=== PATIENT | female | born 1985 | race Two or more races ===

== ENCOUNTER → 2016-11-07 | Outpatient (CLI) | payer BC | LOC: FIMAGING 11:43 | PROVIDERS: ATTEND Obstetrics & Gynecology | DX: Z71.9 Counseling, unspecified (principal) ==

== ENCOUNTER → 2016-12-06 | Outpatient (CLI) | payer BC | LOC: FIMAGING 14:32 | PROVIDERS: ATTEND Midwife | DX: N92.6 Irregular menstruation, unspecified (principal); N83.01 Follicular cyst of right ovary ==

== ENCOUNTER → 2017-05-01 | Outpatient (CLI) | payer BC | LOC: FIMAGING 09:14 | PROVIDERS: ATTEND Obstetrics & Gynecology | DX: O09.291 Supervision of pregnancy with other poor reproductive or obstetric history, first trimester (principal); O99.111 Other diseases of the blood and blood-forming organs and certain disorders involving the immune mechanism complicating pregnancy, first trimester; Z3A.11 11 weeks gestation of pregnancy ==

== ENCOUNTER → 2017-06-02 | Outpatient (CLI) | payer BC | LOC: FIMAGING 08:38 | PROVIDERS: ATTEND Obstetrics & Gynecology | DX: O09.292 Supervision of pregnancy with other poor reproductive or obstetric history, second trimester (principal); Z3A.16 16 weeks gestation of pregnancy ==

== ENCOUNTER → 2017-06-30 | Outpatient (CLI) | payer BC | LOC: FIMAGING 08:07 | PROVIDERS: ATTEND Obstetrics & Gynecology | DX: Z36.89 Encounter for other specified antenatal screening (principal); Z3A.20 20 weeks gestation of pregnancy; O09.292 Supervision of pregnancy with other poor reproductive or obstetric history, second trimester ==

== ENCOUNTER → 2017-08-12 | Outpatient (CLI) | payer BC | LOC: FIMAGING 08:25 | PROVIDERS: ATTEND Obstetrics & Gynecology | DX: O09.292 Supervision of pregnancy with other poor reproductive or obstetric history, second trimester (principal); O09.212 Supervision of pregnancy with history of pre-term labor, second trimester; Z3A.26 26 weeks gestation of pregnancy ==

== ENCOUNTER → 2017-09-15 | Outpatient (CLI) | payer BC | LOC: FIMAGING 08:44 | PROVIDERS: ATTEND Obstetrics & Gynecology | DX: O09.293 Supervision of pregnancy with other poor reproductive or obstetric history, third trimester (principal); O99.113 Other diseases of the blood and blood-forming organs and certain disorders involving the immune mechanism complicating pregnancy, third trimester; D68.51 Activated protein C resistance; Z3A.31 31 weeks gestation of pregnancy ==

== ENCOUNTER → 2017-10-14 | Outpatient (CLI) | payer BC | LOC: FIMAGING 08:52 | PROVIDERS: ATTEND Obstetrics & Gynecology | DX: O09.893 Supervision of other high risk pregnancies, third trimester (principal); D68.51 Activated protein C resistance; Z3A.35 35 weeks gestation of pregnancy ==

== ENCOUNTER 2017-11-13 00:56 | Inpatient (IN) | payer BC ==
[2017-11-13] MEDS ORDERED: MISOPROSTOL 200 MCG TAB PO PRN (01:58)
[2017-11-13] MEDS ORDERED: OLIVE OIL 118 ML BTL MISC PRN (01:58)
[2017-11-13] MEDS ORDERED: LIDOCAINE 1% 300 MG/30 ML SDV SC PRN (01:58)
[2017-11-13] MEDS ORDERED: EPSOM SALT 454 GM TP PRN (01:58)
[2017-11-13] MEDS ORDERED: AMMONIA AROMATIC 1 EACH AMP IH PRN (01:58)
[2017-11-13] MEDS ORDERED: OXYTOCIN/NORMAL SALINE 1,000 ML IV PRN (01:58)
[2017-11-13] MEDS ORDERED: TERBUTALINE SULFATE 1 MG/ML VIAL IV PRN (01:58)
[2017-11-13] MEDS ORDERED: LR 1,000 ML IV PRN (01:58)
[2017-11-13 02:29] LABS: PLATELET COUNT 192 10^3/uL (150-400)
[2017-11-13] MEDS ORDERED: NARCOTIC DRIP BAG-TOTAL ALL TYPES EP PRN (03:42)
[2017-11-13] MEDS ORDERED: fentaNYL 2MCG/ML/BUP 0.1% RTU 100 ML EP SCH ×2 (03:42→05:30)
[2017-11-13] MEDS ORDERED: NALOXONE HCL 0.4 MG/ML INJ IVP PRN (03:42)
[2017-11-13] MEDS ORDERED: fentaNYL 200 MCG, BUPIVACAINE 0.5% 20 ML in NS 100 ML EP SCH (04:00)
[2017-11-13] MEDS ORDERED: BUPIVACAINE/EPI 0.5% 30 ML SDV ONE (04:09)
[2017-11-13] MEDS ORDERED: fentaNYL 100 MCG/2 ML INJ ONE ×2 (04:09→10:23)
--- NOTE | 2017-11-13 05:28 | PREANESOB ---
Obstetric Pre-Anesthesia Info - General Info : 3 Para: 0 DELMI: 11/14/17 Gestational Age: 39 week(s) and 6 day(s) - Labor Status Rupture of Membranes Date: 11/12/17 Rupture of Membranes Time: 23:53 Anesthesia Allergies/Adverse Reactions: Allergy/AdvReac Type Severity Reaction Status Date / Time No Known Allergies Allergy Unverified 09/03/15 00:28 Home Medications: Medication Instructions Recorded NK [No Known Home Meds] 09/03/15 Visit Medications: Generic Name Dose Route Start Last Admin Trade Name Freq PRN Reason Stop Dose Admin Ammonia (Aromatic Spirit) 1 each 11/13/17 01:58 Ammonia Aromatic IH 11/23/17 01:57 ONCE PRN Fainting Lactated Ringer's 1,000 mls @ 0 mls/hr 11/13/17 01:58 Lr IV 11/14/17 01:57 PRN PRN SEE PROTOCOL CONDITIONS Protocol Per Protocol Oxytocin/Sodium Chloride 1,000 mls @ 0 mls/hr 11/13/17 01:58 Pitocin 20 Units/Ns (Premix) IV PRN PRN Post- bleeding As Directed Fentanyl 200 mcg/ Bupivacaine 100 mls @ 0 mls/hr 11/13/17 04:00 HCl 20 ml/ Sodium Chloride EP 11/23/17 03:59 CONT OSMAR Protocol As Directed Ibuprofen 600 mg 11/13/17 01:58 Motrin PO 05/12/18 01:57 Q6HRS PRN post , inflammation Lidocaine HCl 300 mg 11/13/17 01:58 Lidocaine Hcl 1% SC 05/12/18 01:57 ONCE PRN episiotomy Magnesium Sulfate 454 gm 11/13/17 01:58 Epsom Salt TP 05/12/18 01:57 Q1H PRN perineal discomfort Miscellaneous Information 1 ea 11/13/17 09:00 Message To Rn MISC 05/12/18 08:59 DAILY OSMAR Miscellaneous Information 1 ea 11/13/17 09:00 Message To Rn MISC 05/12/18 08:59 DAILY OSMAR Miscellaneous Medication 1 ea 11/13/17 03:42 Narcotic Drip-Total All Types EP 05/12/18 03:41 PRN PRN Omnicell Removal Misoprostol 800 - 1,000 mcg 11/13/17 01:58 Cytotec PO 05/12/18 01:57 ONCE PRN Vaginal Atony/Bleeding Naloxone HCl 0.4 mg 11/13/17 03:42 Narcan IVP 05/12/18 03:41 PRN PRN Sedation [place] Oil 118 ml 11/13/17 01:58 Sweet Oil MISC 05/12/18 01:57 ONCE PRN perineal massage Terbutaline Sulfate 0.25 mg 11/13/17 01:58 Brethine IV 05/12/18 01:57 ONCE PRN Tachysystole Discontinued Medications Generic Name Dose Route Start Last Admin Trade Name Freq PRN Reason Stop Dose Admin Bupivacaine HCl/Epinephrine Bitart Confirm 11/13/17 04:09 Bupivacaine/Epi Administered 11/13/17 04:10 Dose 30 ml .ROUTE .STK-MED ONE Fentanyl Confirm 11/13/17 04:09 Sublimaze Administered 11/13/17 04:10 Dose 100 mcg .ROUTE .STK-MED ONE - Anesthesia History Response to Local Anesthetics: Normal Anesthesia & Operative History: No Prior Problems Family Anesthesia History: Negative (hx scoliosis) - Vital Signs Height/Weight (Nursing): Height 160 cm Weight 75 kg - Focused Exam Neck exam: FROM Mallampati Score: Class 2 Mouth exam: normal dental/mouth exam Pulmonary: no respiratory distress Cardiovascular: regular rate and rhythym Labs: 11/13/17 02:00 Patient ABO/Rh O POSITIVE 11/13/17 02:00 - Plan Consent Signed and on Chart: Yes Patient/Guardian Understands and Agrees to Plan: Yes Urgent/Emergent Case: Ju alarcon completed preop but documented later for safe timely pt care
[2017-11-13] MEDS ORDERED: ONDANSETRON 4 MG/2 ML VIAL IVP PRN (05:29)
--- NOTE | 2017-11-13 06:32 | PDGENHP ---
History and Physical - Chief Complaint regular contractions and gush of fluid - History of Present Illness 32 yo at 39w6d by 6 wk US, presents with regular contractions since gush of clear fluid at 2353. Had irregular contractions for about 20 hours prior to that. Good FM, a small amount of bloody show. Uncomplicated course, had care with the [facility] , until transferring care to [facility] around 36 weeks. She had a consult with [facility] due to hx of IUFD at 19 weeks when she was in the [place] Aug 2016. Per MFM: 12 week US with normal NT, NIPT 46XX. Factor V Leiden Heterozygote - no hx of thrombosis. No anticoagulation recommended unless has other risk factors for thrombosis including C/S, preeclampsia, or infection. She has been on baby ASA daily until 36 weeks. 16 week and 20 week ultrasounds: normal anatomy and growth 26 week ultrasound:normal anatomy and growth. 31 week ultrasound: EFW at 55%ile, 1864gm Past Ob hx: first trimester SAB 01/2017 19 wk IUFD - fetus was 15 week size, delivered spontaneously in the [place] Aug 2016 labs: O pos Ab scr neg 12.9/38.1 plt 237 HepBsAg neg HIV neg RPR NR Rub NON immune Varicella immune GC neg pap/ HPV neg/neg AFP neg Normal 3 hr GTT, after 1 hr GTT of 153 History Information - Allergies/Home Medication List Allergies/Adverse Reactions: No Known Allergies Allergy (Unverified 09/03/15 00:28) Home Medications: NK [No Known Home Meds] 09/03/15 [Last Taken Unknown] I have personally reviewed and updated: family history, medical history, social history, surgical history Past Medical History: Factor V Leiden heteroxygote - has been on baby ASA during . Scoliosis - Surgical History Reports: no pertinent surgical hx Additional surgical history: has not had any surgery - Social History Smoking Status: Never smoked Alcohol Use: None Drug Use: None Additional social history: , = [place]. Works as tax assessor for [employer] Review of Systems Review of Systems: ROS: 10pt was reviewed & negative except for what was stated in HPI & below Physical Exam Physical Exam: gen - pleasant female, NAD after epidural placed CV - RRR chest - CTAB abd - gravid, soft, NT when not siva ext - calves NT, trace edema SVE per RN on arrival = /high after epidural = /0 Constitutional: no apparent distress Eyes: PERRL Ears, Nose, Mouth, Throat: moist mucous membranes Cardiovascular: regular rate and rhythym Respiratory: no respiratory distress, no rales or rhonchi Skin: warm, normal color Psychiatric: interacting appropriately Lab Data & Imaging Review 11/13/17 02:00 WBC 11.01 10^3/uL (3.80-9.50) H 11/13/17 02:00 RBC 4.16 10^6/uL (4.18-5.33) L 11/13/17 02:00 Hgb 13.5 g/dL (12.6-16.3) 11/13/17 02:00 Hct 40.1 % (38.0-47.0) 11/13/17 02:00 MCV 96.4 fL (81.5-99.8) 11/13/17 02:00 MCH 32.5 pg (27.9-34.1) 11/13/17 02:00 MCHC 33.7 g/dL (32.4-36.7) 11/13/17 02:00 RDW 12.8 % (11.5-15.2) 11/13/17 02:00 Plt Count 192 10^3/uL (150-400) 11/13/17 02:00 MPV 10.8 fL (8.7-11.7) 11/13/17 02:00 Neut % (Auto) 77.3 % (39.3-74.2) H 11/13/17 02:00 Lymph % (Auto) 15.5 % (15.0-45.0) 11/13/17 02:00 Bailey % (Auto) 6.2 % (4.5-13.0) 11/13/17 02:00 Eos % (Auto) 0.1 % (0.6-7.6) L 11/13/17 02:00 Baso % (Auto) 0.4 % (0.3-1.7) 11/13/17 02:00 Nucleat RBC Rel Count 0.0 % (0.0-0.2) 11/13/17 02:00 Absolute Neuts (auto) 8.51 10^3/uL (1.70-6.50) H 11/13/17 02:00 Absolute Lymphs (auto) 1.71 10^3/uL (1.00-3.00) 11/13/17 02:00 Absolute Monos (auto) 0.68 10^3/uL (0.30-0.80) 11/13/17 02:00 Absolute Eos (auto) 0.01 10^3/uL (0.03-0.40) L 11/13/17 02:00 Absolute Basos (auto) 0.04 10^3/uL (0.02-0.10) 11/13/17 02:00 Absolute Nucleated RBC 0.00 10^3/uL (0-0.01) 11/13/17 02:00 Immature Gran % 0.5 % (0.0-1.1) 11/13/17 02:00 Immature Gran # 0.06 10^3/uL (0.00-0.10) 11/13/17 02:00 Patient ABO/Rh O POSITIVE 11/13/17 02:00 Antibody Screen NEGATIVE 11/13/17 02:00 Assessment & Plan Assessment: 32 at 39w6d by 6 week ultrasound, in labor, SROM since shortly prior to 0000. GBS neg Hx of Factor V Leiden Heterozygote, no hx of thrombosis Plan: Epidural has been placed - pt comfortable, despite concern for effectiveness in setting of scoliosis. Factor V Leiden heterozygote- Lovenox prophylactically only recommended in setting of additional thrombosis risk, including preeclampsia, C/S, infection Expectant managment for now.
[2017-11-13] MEDS ORDERED: PHENYLEPHRINE HCL 100 MCG/ML SYR ONE (07:28)
[2017-11-13] MEDS ORDERED: REGARDING ANTICOAG MISC SCH (09:00)
[2017-11-13] MEDS ORDERED: DC NARCS MISC SCH (09:00)
[2017-11-13] MEDS: fentaNYL 200 MCG, BUPIVACAINE 0.5% 20 ML in NS 100 ML EP SCH ×2 (09:38→13:46)
[2017-11-13] MEDS ORDERED: BUPIVACAINE 0.25% 30 ML SDV ONE ×2 (10:23→12:05)
--- NOTE | 2017-11-13 10:31 | OBPROG ---
Labor Progress Note Assessment/Plan: Assessment: [id number] with IUP@39-6wk (6) SROM 11/12/17 @ 2355 active labor cat 1 FHR tracing GBS neg ANTONIA in place Plan: cont expectant management, will consider pitocin PRN reassess 2hr/PRN anesthesia aware of minimal relief anticipate 11/13/17 10:23 11/13/17 10:34 Subjective/Intrapartum Course: 11/13/17 10:31 Pt doing well, she is having pain on left side, but improved since ANTONIA. She states she is not getting full relief, but does not wish to have ANTONIA replaced ( as they had difficulty placing ANTONIA 2/2 scoliosis). FOB/splicing supervisor @ [facility] and supportive. Objective: 11/13/17 02:00 Patient ABO/Rh O POSITIVE 11/13/17 02:00 - SVE Dilation (cm): 6 Effacement (%): 90 Station: 0 Membranes: SROM Amniotic Fluid Color: Clear - Contraction Pattern Assessment Current Contraction Pattern: Irregular - FHR Assessment [place] FHR (bpm): 140 FHR Pattern Variability: Moderate FHR Category: 1 Oxytocin Orders Assessment - Pre-Induction/Augmentation Assessment Presentation: Vertex Gestational Age: 39 week(s) and 6 day(s) Gestational Age Determined By: Ultrasound - Joseph's Score Dilation: 5-6cm Effacement: 80+ Station: -1,0 Cervix: Soft Cervix Position: Mid Joseph Score Total: 11 ICD10 Worksheet Patient Problems: Problems Problem Status Onset Labor without complication Acute - ICD10 Problem Qualifiers (1) Labor without complication
[2017-11-13] MEDS ORDERED: LR 500 ML IV PRN (11:03)
--- NOTE | 2017-11-13 11:06 | OBPROG ---
Labor Progress Note Assessment/Plan: Assessment: [id number] with IUP@39-6wk (6) SROM 11/12/17 @ 2355 active labor cat 1 FHR tracing GBS neg ANTONIA in place Plan: start pitocin at this time reassess 2hr/PRN 11/13/17 10:23 11/13/17 10:34 11/13/17 11:04 Subjective/Intrapartum Course: 11/13/17 10:31 Pt doing well, she is having pain on left side, but improved since ANTONIA. She states she is not getting full relief, but does not wish to have ANTONIA replaced ( as they had difficulty placing ANTONIA 2/2 scoliosis). FOB/java enterprise architect @ [facility] and supportive. Objective: 11/13/17 02:00 Patient ABO/Rh O POSITIVE 11/13/17 02:00 - SVE Dilation (cm): 6 Effacement (%): 90 Station: 0 Membranes: SROM Amniotic Fluid Color: Clear - Contraction Pattern Assessment Current Contraction Pattern: Irregular - FHR Assessment [place] FHR (bpm): 135 FHR Pattern Variability: Moderate FHR Category: 2 Oxytocin Orders Assessment - Pre-Induction/Augmentation Assessment Presentation: Vertex Gestational Age: 39 week(s) and 6 day(s) ICD10 Worksheet Patient Problems: Problems Problem Status Onset Labor without complication Acute - ICD10 Problem Qualifiers (1) Labor without complication
[2017-11-13] MEDS ORDERED: OXYTOCIN/NORMAL SALINE 500 ML IV SCH (11:30)
[2017-11-13] MEDS ORDERED: ACETAMINOPHEN 500 MG TAB PO PRN (11:50)
[2017-11-13] MEDS ORDERED: PHENYLEPHRINE HCL 100 MCG/ML SYR IVP PRN (11:51)
[2017-11-13] MEDS: IBUPROFEN 600 MG TAB PO PRN ×2 (15:00→21:36)
[2017-11-13] MEDS ORDERED: SIMETHICONE 80 MG TAB CHEW PO PRN (15:37)
[2017-11-13] MEDS ORDERED: ACETAMINOPHEN 325 MG TAB PO PRN (15:37)
[2017-11-13] MEDS ORDERED: HYDROCORTISONE 0.5% CREAM TP PRN (15:37)
--- NOTE | 2017-11-13 16:04 | OBDEL ---
Info Type: Vaginal Presentation at Delivery: Vertex L&D Analgesia/Anesthesia Type: Epidural GBS+: No Intrapartum Medications: Generic Name Dose Route Start Last Admin Trade Name Freq PRN Reason Stop Dose Admin Acetaminophen 1,000 mg 11/13/17 11:50 11/13/17 12:17 Tylenol PO 05/12/18 11:49 1,000 mg Q6HRS PRN Administration Pain, Mild/Fever, Can Take PO Fentanyl 200 mcg/ Bupivacaine 100 mls @ 0 mls/hr 11/13/17 06:00 11/13/17 13: 46 HCl 20 ml/ Sodium Chloride EP 11/23/17 05:59 100 mls CONT OSMAR Administration Protocol As Directed Oxytocin/Sodium Chloride 500 mls @ 0 mls/hr 11/13/17 11:30 11/13/17 11:29 Pitocin 30 Units/Ns (Premix) IV 05/12/18 11:29 500 mls CONT OSMAR Administration Protocol Per Protocol Ibuprofen 600 mg 11/13/17 01:58 11/13/17 15:00 Motrin PO 05/12/18 01:57 600 mg Q6HRS PRN Administration post , inflammation - Hospital Course Intrapartum: 11/13/17 10:31 Pt doing well, she is having pain on left side, but improved since ANTONIA. She states she is not getting full relief, but does not wish to have ANTONIA replaced ( as they had difficulty placing ANTONIA 2/2 scoliosis). FOB/market development analyst @ [facility] and supportive. Indications for Delivery: SROM Vaginal Delivery - Delivery Provider Delivery Physician/CNM: April Flores - Labor and Delivery Onset of Contractions Date: 11/11/17 Onset of Contractions Time: 23:00 Onset of Contractions Type: Augmented Rupture of Membranes Date: 11/12/17 Rupture of Membranes Time: 23:53 Rupture of Membranes Type: Spontaneous Amniotic Fluid Color: Clear Dilation Complete Date: 11/13/17 Dilation Complete Time: 13:44 Placenta Delivery Date: 11/13/17 Placenta Delivery Time: 14:39 Total Hours of Labor: 39 Laceration: 1st Degree Repair: 3-0, Vicryl Vaginal Sponge Count Correct: Yes Vaginal Needle Count Correct: Yes Vaginal Sweep Performed: Yes EBL: [address] [place] [place] Data DELMI: 11/14/17 Gestational Age: 39 week(s) and 6 day(s) [place] Delivery Date: 11/13/17 Delivery Time: 14:22 Sex of Infant: Female Score (1 Min): 8 Score (5 Min): 9 ICD10 Worksheet Patient Problems: Problems Problem Status Onset Labor without complication Acute Perineal laceration during delivery Acute (spontaneous vaginal delivery) Acute - ICD10 Problem Qualifiers (1) Labor without complication (2) (spontaneous vaginal delivery) (3) Perineal laceration during delivery
[2017-11-13] MEDS: DOCUSATE SODIUM 100 MG CAP PO PRN (21:37)
[2017-11-14] MEDS: IBUPROFEN 600 MG TAB PO PRN ×4 (04:23→22:34)
--- NOTE | 2017-11-14 08:20 | POSTANESTH ---
Post Anesthetic Evaluation Cardiovascular Status: Similar to Pre-Op Cond Respiratory Status: Similar to Pre-op Cond. Level of Consciousness/Mental Status: Alert and Oriented Pain Control: Adequate, Prn Tx Ordered Nausea/Vomiting Control: Adequate, Prn Tx Ordered (Persistant Right anterior thigh numbness. Good motor function.)
[2017-11-14] MEDS ORDERED: MEASLES,MUMPS&RUBELLA VACC/PF 0.5 ML VIAL SC ONE (10:03)
[2017-11-14] MEDS: DOCUSATE SODIUM 100 MG CAP PO PRN ×2 (10:38→22:34)
--- NOTE | 2017-11-14 12:38 | OBPP ---
Progress Note Assessment/Plan: Assessment: ppd 1 s/p rub NI - MMR given Plan: routine care, mild anemia 11/14/17 12:35 Subjective/ Course: 11/14/17 12:36 Pt doing well. Bld is moderate. Baby is latching. urinating fine. Pain is controlled with ibuprofen - mild. Objective: 11/14/17 00:01 Patient ABO/Rh O POSITIVE 11/13/17 02:00 Temp Pulse Resp BP Pulse Ox 36.7 C 86 18 92/55 L 94 11/13/17 19:55 11/13/17 19:55 11/13/17 19:55 11/13/17 19:55 11/13/17 19:55 Uterine Position/Fundal Height: Umbilicus -1 Uterine Tone: Firm Physical Exam - Physical Exam Abdomen: non-tender, soft, other (normal lochia) Extremities: non-tender, pedal edema (mild) Skin: normal color, warm/dry Neuro/Psych: alert, normal mood/affect
[2017-11-15] MEDS: IBUPROFEN 600 MG TAB PO PRN ×2 (06:04→12:44)
[2017-11-15 09:10] VITALS: BP 95/64
[2017-11-15] MEDS: DOCUSATE SODIUM 100 MG CAP PO PRN (09:48)
--- NOTE | 2017-11-15 17:42 | OBGCSDC ---
General Delivery Information - General Info : 3 Para: 1 Abortions: 2 Type: Vaginal L&D Analgesia/Anesthesia Type: Epidural Admission Date: 11/13/17 Labs: Patient ABO/Rh O POSITIVE 11/13/17 02:00 Hct 35.3 % (38.0-47.0) L 11/14/17 00:01 - Hospital Course Intrapartum: 11/13/17 10:31 Pt doing well, she is having pain on left side, but improved since ANTONIA. She states she is not getting full relief, but does not wish to have ANTONIA replaced ( as they had difficulty placing ANTONIA 2/2 scoliosis). FOB/wafer polisher @ [facility] and supportive. : 11/14/17 12:36 Pt doing well. Bld is moderate. Baby is latching. urinating fine. Pain is controlled with ibuprofen - mild. 11/15/17 17:43 S) Pt doing well, reports min pain and bleeding. she is ambulating and voiding without difficulty. She is . baby is under bili lights and will stay in hospital until tomorrow. Pt will be d/c'd home today but will stay as boarder with infant. O) VSS, afebrile constitutional: WNWF, A&Ox3 HEENT: normocephalic, atraumatic, supple Heart: RRR, No murmur Chest: CTA-B Abdomen: Soft, nontender Uterus: Firm at U-2 Lochia: Minimal rubra Perineum: Intact, healing well Extremities: Trace edema, and negative Nikos's sign Neuro: Grossly normal A) 32-year-old S/P PPD#2 P) Discharge today to boarder Continue Pelvic rest x6wks Discussed danger signs (infection, preeclampsia, depression, heavy bleeding, etc ) RTO in 2/4/6 weeks Vaginal - Delivery Provider Delivery Physician/CNM: April Flores - Diagnosis Labor: Augmented Rupture of Membranes Type: Spontaneous Amniotic Fluid Color: Clear Laceration: 1st Degree Repair: 3-0, Vicryl - Delivery EBL: [address] [place] Data DELMI: 11/14/17 Gestational Age: 40 week(s) and 1 day(s) [place] Delivery Date: 11/13/17 Delivery Time: 14:22 Sex of : Female Score (1 Min): 8 Score (5 Min): 9 Discharge Information - Discharge Information Condition: Good Instruction/Follow Up: Two Weeks, Four Weeks, Six Weeks
== END 2017-11-15 18:00 | disposition home or self-care (01) | DRG 775 ==
LOC: FLD 00:56 → FOB 17:30
PROVIDERS: ADMIT Hospitalist; ATTEND Advanced Practice Midwife
PROC: 0HQ9XZZ Repair Perineum Skin, External Approach (ICD-10-PCS; principal; 2017-11-13)
PROC: 10E0XZZ Delivery of Products of Conception, External Approach (ICD-10-PCS; principal; 2017-11-13)
DX: O70.0 First degree perineal laceration during delivery (principal); O99.113 Other diseases of the blood and blood-forming organs and certain disorders involving the immune mechanism complicating pregnancy, third trimester; D68.2 Hereditary deficiency of other clotting factors; O99.89 Other specified diseases and conditions complicating pregnancy, childbirth and the puerperium; M41.9 Scoliosis, unspecified; Z3A.39 39 weeks gestation of pregnancy; Z37.0 Single live birth; Z79.82 Long term (current) use of aspirin; Z23 Encounter for immunization
CPT/HCPCS: J2370; J2590; J3010

== ENCOUNTER → 2017-11-20 | Outpatient (CLI) | payer BC | LOC: FLACT 09:25 | PROVIDERS: ATTEND Advanced Practice Midwife | DX: O92.79 Other disorders of lactation (principal) | CPT/HCPCS: G0463 ==

== ENCOUNTER → 2017-12-02 | Outpatient (CLI) | payer BC | LOC: FLACT 14:56 | PROVIDERS: ATTEND Advanced Practice Midwife | DX: Z39.1 Encounter for care and examination of lactating mother (principal) | CPT/HCPCS: G0463 ==